=== PATIENT | male | born 1950 | race Caucasian/White ===

== ENCOUNTER → 2017-11-16 | Outpatient (CLI) | payer MEDICARE ==
[~2017-11-16] MED LIST: CYAN1TAB29 PO; IBUP200C8 PO; TURM500C4 PO
[2017-11-16 13:08] LABS: BASOPHILS # (AUTO) 0.02 x10^3/uL (0-0.1); BASOPHILS % (AUTO) 0 % (0-1); EOSINOPHILS # (AUTO) 0.07 x10^3/uL (0-0.4); EOSINOPHILS % (AUTO) 1 % (1-7); LYMPHOCYTES # (AUTO) 1.56 x10^3/uL (1-3.4); LYMPHOCYTES % (AUTO) 27 % (22-44); MD NO; MEAN CORPUSCULAR HEMOGLOBIN 31.4 pg (27.5-34.5); MEAN CORPUSCULAR HGB CONC 34.1 g/dL (33.2-36.2); MEAN PLATELET VOLUME 8.1 fL (7.4-10.4); MONOCYTES # (AUTO) 0.43 x10^3/uL (0.2-0.8); MONOCYTES % (AUTO) 7 % (2-9); NEUTROPHILS # (AUTO) 3.64 x10^3/uL (1.8-6.8); NEUTROPHILS % (AUTO) 64 % (42-75); PLATELET COUNT 221 x10^3/uL (130-400); RED BLOOD COUNT 4.67 x10^6/uL (4.38-5.82); RED CELL DISTRIBUTION WIDTH 13.2 % (9.4-14.8)
[2017-11-16 13:12] LABS: MICROSCOPIC NOT IND
[2017-11-16 13:17] LABS: CULTURE INDICATED? NO
== END | disposition home or self-care (01) ==
LOC: STAR 12:02
PROVIDERS: ATTEND Orthopaedic Surgery
DX: Z01.818 Encounter for other preprocedural examination (principal); M17.11 Unilateral primary osteoarthritis, right knee; Z96.651 Presence of right artificial knee joint
CPT/HCPCS: 36415; 81003; 85025; 87081; 87806; 93005; G0475

== ENCOUNTER 2017-11-22 07:30 | Inpatient (IN) | payer MEDICARE ==
[~2017-11-22] VITALS: Ht 175.3 cm; Wt 77.6 kg
[2017-11-22] MEDS ORDERED: LACTATED RINGERS 1,000 ML IV SCH (07:53)
[2017-11-22] MEDS ORDERED: VANCOMYCIN PMX 1GM/200ML 200 ML IV ONE (07:54)
[2017-11-22] MEDS ORDERED: LIDOCAINE-MPF 1%, 2ML INFIL ONE (08:00)
[2017-11-22] MEDS ORDERED: OXYcodone IR 5MG TABLET PO ONE (08:00)
[2017-11-22] MEDS ORDERED: ACETAMINOPHEN 500 MG TABLET PO ONE (08:00)
[2017-11-22] MEDS ORDERED: GABAPENTIN 300 MG CAPSULE PO ONE (08:00)
[2017-11-22] MEDS ORDERED: FENTANYL PF 100 MCG/2ML ONE ×4 (09:08→11:37)
[2017-11-22] MEDS ORDERED: MIDAZOLAM 1 MG/ML, 2ML ONE ×2 (09:09)
[2017-11-22] MEDS ORDERED: KETOROLAC 60 MG/2 ML ONE (09:13)
[2017-11-22] MEDS ORDERED: SODIUM CHLORIDE 0.9% 100 ML ONE (09:14)
[2017-11-22] MEDS ORDERED: ROPIvacaine/PF 0.2%, 20 ML ONE (09:14)
[2017-11-22] MEDS ORDERED: morphine SULFATE/PF 1 MG/ML, 10ML ONE (09:14)
[2017-11-22] MEDS ORDERED: BACITRACIN 50,000 UNIT ONE (09:14)
[2017-11-22] MEDS ORDERED: EPINEPHRINE 1 MG/ML, 1ML ONE (09:14)
[2017-11-22] MEDS ORDERED: TRANEXAMIC ACID 100 MG/ML, 10ML ONE (09:14)
[2017-11-22] MEDS ORDERED: ONDANSETRON 2MG/ML, 2ML IVPush PRN ×2 (09:30→10:00)
[2017-11-22] MEDS ORDERED: morphine SULFATE 10 MG/ML, 1ML IVPush PRN (09:30)
[2017-11-22] MEDS ORDERED: DIPHENHYDRAMINE 25 MG CAPSULE PO PRN (09:30)
[2017-11-22] MEDS ORDERED: LORazepam 2 MG/ML, 1ML IVPush PRN (09:30)
[2017-11-22] MEDS ORDERED: ZOLPIDEM 5MG TABLET PO PRN (09:30)
[2017-11-22] MEDS ORDERED: VANCOMYCIN PMX 1GM/200ML 200 ML IVPB ONE (09:30)
[2017-11-22] MEDS ORDERED: PROPOFOL 10 MG/ML, 20ML ONE (09:48)
[2017-11-22] MEDS ORDERED: ROCURONIUM 10 MG/ML,10ML ONE (09:48)
[2017-11-22] MEDS ORDERED: CEFAZOLIN 1,000 MG ONE ×2 (09:48)
[2017-11-22] MEDS ORDERED: DEXAMETHASONE 4 MG/ML, 1ML ONE (09:48)
[2017-11-22] MEDS ORDERED: morphine SULFATE 10 MG/ML, 1ML IV PRN (10:00)
[2017-11-22] MEDS ORDERED: ALBUTEROL SULFATE 2.5 MG/3 ML NPPB PRN (10:00)
[2017-11-22] MEDS ORDERED: EPHEDRINE 50 MG/ML, 1ML IVPush PRN (10:00)
[2017-11-22] MEDS ORDERED: DIAZEPAM 5 MG/ML, 2ML IVPush PRN (10:00)
[2017-11-22] MEDS ORDERED: METOPROLOL 1 MG/ML, 5ML IV PRN (10:00)
[2017-11-22] MEDS ORDERED: MEPERIDINE/PF 25MG/0.5ML IVPush PRN (10:00)
[2017-11-22] MEDS ORDERED: LABETALOL 5MG/ML, 20ML IV PRN (10:00)
[2017-11-22] MEDS ORDERED: PROMETHAZINE 25 MG/ML, 1ML IV PRN (10:00)
[2017-11-22] MEDS ORDERED: hydrALAzine 20 MG/ML, 1ML IV PRN (10:00)
[2017-11-22] MEDS ORDERED: GLYCOPYRROLATE 0.2MG/1ML, 5ML ONE (11:09)
[2017-11-22] MEDS ORDERED: ONDANSETRON 2MG/ML, 2ML ONE (11:09)
[2017-11-22] MEDS ORDERED: NEOSTIGMINE 1 MG/ML, 10ML ONE (11:09)
[2017-11-22] MEDS ORDERED: MORPHINE SULFATE 4 MG/ML, 1ML ONE (11:37)
[2017-11-22] MEDS ORDERED: OXYcodone 5 MG/5 ML ORAL.SOL UDC ONE ×2 (11:37→12:16)
[2017-11-22] MEDS ORDERED: MEPERIDINE/PF 25MG/0.5ML ONE (11:37)
[2017-11-22] MEDS: OXYcodone 5 MG/5 ML ORAL.SOL UDC PO PRN ×2 (11:43→12:18)
[2017-11-22] MEDS: FENTANYL PF 100 MCG/2ML IV PRN ×2 (11:58→12:18)
[2017-11-22] MEDS ORDERED: LORazepam 2 MG/ML, 1ML ONE (12:26)
[2017-11-22] MEDS: D5%-0.45% NACL 1,000 ML IV SCH ×2 (14:00→18:36)
[2017-11-22] MEDS ORDERED: TRANEXAMIC ACID 1,000 MG in SODIUM CHLORIDE 0.9% 100 ML IV ONE (15:00)
[2017-11-22] MEDS ORDERED: CEFAZOLIN PMX 1GM/50ML 50 ML IVPB SCH (15:00)
[2017-11-22] MEDS: OXYcodone/APAP 7.5/325MG TABLET PO PRN ×2 (16:35→21:02)
[2017-11-22] MEDS: CEFAZOLIN PMX 1GM/50ML 50 ML IVPB SCH (17:59)
[2017-11-22 20:52] VITALS: BP 108/72
[2017-11-23 00:15] VITALS: BP 101/67
[2017-11-23] MEDS: OXYcodone/APAP 7.5/325MG TABLET PO PRN ×4 (01:34→14:15)
[2017-11-23] MEDS: CEFAZOLIN PMX 1GM/50ML 50 ML IVPB SCH ×2 (01:35→10:47)
[2017-11-23 04:03] VITALS: BP 111/71
[2017-11-23] MEDS: D5%-0.45% NACL 1,000 ML IV SCH ×4 (05:27→15:00)
[2017-11-23 06:40] VITALS: BP 104/69
[2017-11-23] MEDS ORDERED: VANCOMYCIN PMX 1GM/200ML 200 ML IVPB ONE (09:00)
[2017-11-23] MEDS ORDERED: FOLIC ACID 1 MG TABLET PO SCH (09:00)
[2017-11-23] MEDS ORDERED: CYANOCOBALAMIN 1,000 MCG TABLET PO SCH (09:00)
[2017-11-23] MEDS: ACETAMINOPHEN 325 MG TABLET PO PRN ×2 (09:04→13:33)
[2017-11-23 12:52] VITALS: BP 106/69
[2017-11-23] MEDS ORDERED: ASPIRIN 325 MG TABLET EC PO SCH (17:00)
[2017-11-23] MEDS ORDERED: DOCUSATE 100 MG CAPSULE PO SCH (21:00)
== END 2017-11-23 16:21 | disposition home or self-care (01) | DRG 470 ==
LOC: OUT 07:30 → ORIP 09:20 → 4NOR 13:32 → DCLOUNGE 11-23 16:10
PROVIDERS: ADMIT Orthopaedic Surgery; ATTEND Orthopaedic Surgery
PROC: 0SRC0J9 Replacement of Right Knee Joint with Synthetic Substitute, Cemented, Open Approach (ICD-10-PCS; principal; 2017-11-22 09:30)
DX: M17.11 Unilateral primary osteoarthritis, right knee (principal)
CPT/HCPCS: C1713; J0171; J0690; J1100; J1885; J2175; J2250; J2274; J2405; J2704; J2710; J2795; J3010; J3370; J3490; C1776; J2060; J2270; J7120